=== PATIENT | female | born 1960 | race Caucasian/White ===

== ENCOUNTER → 2023-12-15 16:47 | Outpatient (REF) | payer OTHER, SELFPAY | LOC: RAD 16:47 | PROVIDERS: ATTENDING PHYSICIAN Nurse Practitioner Family | DX: R05.3 Chronic cough (principal) | CPT/HCPCS: 71046 ==

== ENCOUNTER → 2024-01-18 11:50 | Outpatient (REF) | payer OTHER, SELFPAY | LOC: RCS 11:50 | PROVIDERS: ATTENDING PHYSICIAN Orthopaedic Surgery; FAMILY PHYSICIAN Family Medicine | DX: Z01.818 Encounter for other preprocedural examination (principal) | CPT/HCPCS: 93005 ==

== ENCOUNTER → 2024-04-05 06:22 | Day surgery (SDC) | payer OTHER, SELFPAY | LOC: GI 06:22 | PROVIDERS: ATTENDING PHYSICIAN Internal Medicine Gastroenterology | DX: Z12.11 Encounter for screening for malignant neoplasm of colon (principal); K63.5 Polyp of colon; D17.5 Benign lipomatous neoplasm of intra-abdominal organs; K64.0 First degree hemorrhoids | CPT/HCPCS: 45380; 88305 ==

== ENCOUNTER → 2024-06-14 12:55 | Outpatient (REF) | payer OTHER, SELFPAY | LOC: RCS 12:55 | PROVIDERS: ATTENDING PHYSICIAN Nurse Practitioner; FAMILY PHYSICIAN Family Medicine | DX: R07.89 Other chest pain (principal); E78.5 Hyperlipidemia, unspecified; Z87.898 Personal history of other specified conditions | CPT/HCPCS: 93017 ==

== ENCOUNTER 2024-06-16 19:36 | Emergency (ER) | payer OTHER, SELFPAY ==
[2024-06-16 19:38] VITALS: BP 143/76
[2024-06-16 19:55] LABS: % Basophils 0.5 % (0-2); % Eosinophils 3.8 % (0-6); % Immature Granulocytes 0.3 % (0-0.5); % Lymphocytes 28.1 % (20.5-51.1); % Monocytes 7.1 % (1.7-9.3); % Neutrophils 60.2 % (42.2-75.2); Absolute Basophils 0.1 10^3/uL (0-0.2); Absolute Eosinophils 0.4 10^3/uL (0-0.7); Absolute Lymphocytes 2.9 10^3/uL (1.2-3.4); Absolute Monocytes 0.7 10^3/uL (0.1-0.6); Absolute Neutrophils 6.2 10^3/uL (1.4-6.5); Hematocrit 41.6 % (37.0-47.0); Hemoglobin 13.4 g/dL (12.0-16.0); Mean Corp Hgb Conc. 32.2 g/dL (33.0-37.0); Mean Corpuscular Hgb 29.6 pg (27.0-31.0); Mean Platelet Volume 10.4 fL (7.4-10.4); Nucleated Red Blood Cells % 0 %; Platelet Count 275 10^3/uL (130-400); Red Blood Cell Count 4.52 10^6/uL (4.20-5.40); Red Cell Dist. Width 13.3 % (11.5-14.5); White Blood Cell Count 10.4 10^3/uL (4.8-10.8)
[2024-06-16 20:09] LABS: ALT (SGPT) 53 U/L (0-35); AST (SGOT) 35 U/L (14-36); Albumin 4.8 g/dl (3.5-5.0); Alkaline Phosphatase 61 U/L (38-126); Blood Urea Nitrogen 29 mg/dl (7-17); Calcium 9.7 mg/dl (8.4-10.2); Carbon Dioxide 30 mmol/L (22-30); Chloride 104 mmol/L (98-107); Glucose 110 mg/dl (70-99); Potassium 4.3 mmol/L (3.5-5.1); Sodium 143 mmol/L (135-145); Total Bilirubin 0.2 mg/dl (0.2-1.3); Total Protein 7.5 g/dl (6.3-8.2); eGFR 42.27
[2024-06-16 20:19] LABS: Troponin I < 0.012 ng/ml
--- NOTE | 2024-06-16 20:35 | ED.GENMED ---
History of Present Illness
General
Chief Complaint: Chest Pain
Time Seen by Provider: 06/16/24 20:35
History of Present Illness
History of Present Illness:
TIME OF INITIAL ENCOUNTER: 8:40 PM
HPI: The patient reports intermittent squeezing sensation in the chest that radiates into the left side of the head neck. This has been intermittently occurring starting 8 weeks ago. She states she just had a stress test this past week which was
normal. She had no shortness of breath or diaphoresis. Her symptoms never occurred with exertion.
EXAM:
GENERAL: Well appearing in no distress
HEENT: Moist oral mucosa
CARDIOVASCULAR: No murmurs, normal heart rate, regular rhythm, No chest wall tenderness
PULMONARY: No respiratory distress, breath sounds are clear and equal
ABDOMEN: Soft with no peritoneal signs, no tenderness
NEUROLOGIC: Excellent strength all extremities, no coordination deficits
PSYCHIATRIC: Appropriate mental status, normal insight and judgement
EXTREMITIES: Nontender, no edema, moves all extremities equally
SKIN: No rash, no lesions
NUMBER AND COMPLEXITY OF PROBLEMS ADDRESSED AT THE ENCOUNTER
� Chronic conditions affecting care: Hyperlipidemia, SIBO, anxiety/depression
� Acute Exacerbation and/or Progression of Chronic Illness: This is an acute problem but is had similar episodes of the last 8 weeks
� Differential Diagnosis includes: Anxiety, chest wall pain, ACS
AMOUNT AND/OR COMPLEXITY OF DATA TO BE REVIEWED AND ANALYZED
� I performed an independent evaluation of and my interpretation is:
EKG: Sinus 67, normal axis, no acute ST abnormality, no change from 7024
CT:
X-rays:
Laboratory Studies: Troponin less than 0.012, CBC unremarkable, chemistry showed creatinine 1.4
Other:
� Review of other/old records: I reviewed records. The patient had an exercise stress test 2 days ago that was normal.
� Clinical information was obtained by an independent historian: I spoke to the at bedside
� Prescriptions/Medications Considered but not given:
� Further testing considered but not performed: Did not order x-ray as symptoms only last for 2 minutes at a time.
RISK OF COMPLICATIONS AND/OR MORBIDITY OR MORTALITY OF PATIENT MANAGEMENT
� Social determinants of health affecting care: Lives at home
� Discussion with other providers: I notified Dr. Matthews
� Escalation of care including admission/observation vs risk of discharge considered: The patient had a normal EKG and initial troponin. At Dr. Matthews's request, repeat troponin also obtained.
ANY OTHER UPDATES:
10:40 PM: Patient remains comfortable in appearance. Second troponin unremarkable. EKG was unremarkable. I did speak to Dr. Matthews earlier.
Past History
Past History
ED Past Medical History: Hypercholesterolemia, Psychiatric and Other (Ulcers, SIBO ( Small intestinal bacterial overgrowth), back pain, dizziness, gastroenteritis, frequent urination, arthritis, scoliosis, tendinitis, chondromalacia both knees,
anxiety and bipolar disorder); Negative HTN, IDDM or NIDDM
ED Past Surgical History: None and Other (Endoscopies, colonoscopies with polypectomy)
Social History
Tobacco: Non-smoker
Alcohol: None
Personal:
Living: with family
Employment: Employed
Family History
Family History: CAD
Phy Exam
Physical Exam
Physical Exam:
See HPI
Scores
Heart Score for Chest Pain Patients
STEMI patient?: Not applicable
Course
Orders/Labs/Results
Orders:
Orders
06/16/24 19:42
Electrocardiogram (*1) Urgent
Reason for Study: Chest Pain
EKG- Treatment ONCE
06/16/24 19:47
CMP [Comprehensive Metabolic Panel] Urgent
Complete Blood Count/With Diff Urgent
Troponin I Urgent
06/16/24 22:04
Troponin I Urgent
Abnormal Lab Results
06/16/24
19:47
MCHC 32.2 L g/dL
(33.0-37.0)
Absolute Monos (auto) 0.7 H 10^3/uL
(0.1-0.6)
BUN 29 H mg/dl
(7-17)
Creatinine 1.4 H mg/dL
(0.6-1.0)
Glucose 110 H mg/dl
(70-99)
ALT 53 H U/L
(0-35)
06/16/24 19:47
06/16/24 19:47
Vital Signs
Initial and Last Documented VS:
Initial Vital Signs
Temp Pulse Resp BP Pulse Ox
36.4 C 75 16 143/76 99
06/16/24 19:38 06/16/24 19:38 06/16/24 19:38 06/16/24 19:38 06/16/24 19:38
Last Documented Vital Signs
Temp Pulse Resp BP Pulse Ox
36.4 C 78 16 110/65 99
06/16/24 19:38 06/16/24 22:00 06/16/24 22:00 06/16/24 22:00 06/16/24 22:00
*Critical Care Note
Total Time (30-74mins, 75-104mins- exclusive of procedures): Not Applicable
ED Attending Note
-
Portions of this chart may have been created with voice recognition software.� Occasional wrong word or��sound alike� substitutions may have occurred due to the inherent limitations of voice recognition software.
Discharge Plan
Departure
Patient Disposition: Home (Routine Discharge)
Date of Disposition: 06/16/24
Time of Disposition: 22:39
Patient with high blood pressure during this ER visit?: Yes
Discharge Problem:
Chest pain
Instructions: Chest Pain CBC Follow Up
Prescriptions:
No Action
lamotrigine 100 MG tablet
100 mg PO BID
sertraline [Zoloft] 100 MG tablet
400 mg PO DAILY
levomefolate calcium [L-Methylfolate] 15 MG tablet
800 mcg PO DAILY
clonazepam 1 MG tablet
1 mg PO TID
Abilify:
1 tab PO DAILY
cholecalciferol (vitamin D3) 2,000 UNITS tablet
2,000 units PO DAILY
Referrals:
Juan Jose Eagle DO [Family Provider] -
Activity Restrictions/Additional Instructions:
The cause of your symptoms is unclear. However 2 cardiac blood tests are normal. EKG is unremarkable. I did speak to Dr. Matthews earlier in the evening. Return here if worse or other concerns. Consider taking a 2-week course of [id number]
omeprazole.
Interventions
Interventions:
*Risk Screen - Suicide Last Done: 06/16/24 19:38
*General Assessment Last Done: 06/16/24 19:38
*Neglect/Abuse Screening Last Done: 06/16/24 21:03
ED- Fall Risk Assessment Last Done: 06/16/24 21:03
*ED COVID-19 Vaccine History Last Done: 06/16/24 19:38
*Nursing Disposition Last Done: 06/16/24 22:44
ED- Cardiac Assessment Last Done: 06/16/24 21:03
Discharge Date and Time
Discharge Date/Time: 06/16/24 22:44
Print Language: MALTESE
[2024-06-16 21:05] VITALS: BP 122/70
[2024-06-16 22:00] VITALS: BP 110/65
[2024-06-16 22:37] LABS: Troponin I < 0.012 ng/ml
== END 2024-06-16 22:44 | disposition home or self-care (01) ==
LOC: EMR 19:36
PROVIDERS: Emergency Medicine; EMERGENCY PHYSICIAN Emergency Medicine; FAMILY PHYSICIAN Family Medicine
DX: R07.89 Other chest pain (principal); E78.00 Pure hypercholesterolemia, unspecified; E11.9 Type 2 diabetes mellitus without complications; F31.9 Bipolar disorder, unspecified; F41.9 Anxiety disorder, unspecified; Z82.49 Family history of ischemic heart disease and other diseases of the circulatory system; M41.9 Scoliosis, unspecified
CPT/HCPCS: 99283; 80053; 84484; 85025; 93005

== ENCOUNTER → 2024-06-24 14:32 | Outpatient (REF) | payer OTHER, SELFPAY | LOC: RAD 14:32 | PROVIDERS: ATTENDING PHYSICIAN Family Medicine; FAMILY PHYSICIAN Family Medicine | DX: M54.9 Dorsalgia, unspecified (principal); M25.552 Pain in left hip | CPT/HCPCS: 72100; 73502 ==

== ENCOUNTER → 2024-06-28 08:50 | Outpatient (REF) | payer OTHER, SELFPAY | LOC: RAD 08:50 | PROVIDERS: ATTENDING PHYSICIAN Family Medicine | DX: R07.89 Other chest pain (principal) | CPT/HCPCS: 74246 ==

== ENCOUNTER → 2024-07-26 11:46 | Outpatient (REF) | payer SELFPAY | LOC: RAD 11:46 | PROVIDERS: ATTENDING PHYSICIAN Nurse Practitioner; FAMILY PHYSICIAN Family Medicine | DX: R07.89 Other chest pain (principal); E78.5 Hyperlipidemia, unspecified; Z87.898 Personal history of other specified conditions | CPT/HCPCS: 75571 ==

== ENCOUNTER → 2024-09-20 07:23 | Outpatient (REF) | payer OTHER, SELFPAY | LOC: RAD 07:23 | PROVIDERS: ATTENDING PHYSICIAN Internal Medicine; FAMILY PHYSICIAN Family Medicine | DX: Q27.8 Other specified congenital malformations of peripheral vascular system (principal) | CPT/HCPCS: 71275; Q9967 ==

== ENCOUNTER → 2024-09-27 07:24 | Outpatient (REF) | payer OTHER, SELFPAY | LOC: RAD 07:24 | PROVIDERS: ATTENDING PHYSICIAN Internal Medicine; FAMILY PHYSICIAN Family Medicine | DX: Q27.8 Other specified congenital malformations of peripheral vascular system (principal) | CPT/HCPCS: 70498; Q9967 ==

== ENCOUNTER 2024-12-23 06:20 | Day surgery (SDC) | payer OTHER, SELFPAY | END 2024-12-23 12:18 | disposition home or self-care (01) | LOC: GI 06:20 | PROVIDERS: ATTENDING PHYSICIAN Internal Medicine; FAMILY PHYSICIAN Family Medicine | DX: K22.2 Esophageal obstruction (principal); R07.89 Other chest pain; K29.50 Unspecified chronic gastritis without bleeding; K20.90 Esophagitis, unspecified without bleeding | CPT/HCPCS: 43239; 88305; 88342 ==

== ENCOUNTER → 2025-03-27 14:23 | Outpatient (REF) | payer OTHER, SELFPAY | LOC: WDC 14:23 | PROVIDERS: ATTENDING PHYSICIAN Obstetrics & Gynecology Gynecology; FAMILY PHYSICIAN Family Medicine | DX: Z12.31 Encounter for screening mammogram for malignant neoplasm of breast (principal) | CPT/HCPCS: 77063; 77067 ==